=== PATIENT | female | born 1975 | race Hispanic/Latino ===

== ENCOUNTER 2020-12-20 19:47 | Emergency (ER) | payer OTHER ==
[~2020-12-20] VITALS: Ht 167.6 cm; Wt 115.7 kg
[2020-12-20 22:34] VITALS: BP 172/90
== END 2020-12-20 22:34 | disposition home or self-care (01) ==
LOC: FSED 19:55
DX: M79.604 Pain in right leg (principal); I10 Essential (primary) hypertension
CPT/HCPCS: 93971; 99283